=== PATIENT | female | born 1930 | race Caucasian/White ===

== ENCOUNTER 2021-05-16 00:49 | Emergency (ER) | payer MEDICARE, BC ==
[~2021-05-16] VITALS: Ht 165.1 cm; Wt 68.0 kg
--- NOTE | 2021-05-16 00:55 | NUR ---
PT BIB [id number] FROM HOME C/O NAUSEA, A/O X3, NO SOB OR LABORED BREATHING, AFEBRILE. CLEAR SPEECH, COMPLETE SENTENCES. RECORDS MANAGEMENT CLERK AT BEDSIDE. DR. ZUNIGA AT BEDSIDE, MSE IN PROGRESS.
[2021-05-16] MEDS ORDERED: ONDANSETRON 4 MG/2 ML VIAL IV ONE (01:00)
[2021-05-16] MEDS ORDERED: PANTOPRAZOLE SODIUM 40 MG VIAL IV ONE (01:00)
[2021-05-16] MEDS ORDERED: VANCOMYCIN IV 1,000 MG in IV DEXTROSE 5% 250 ML IV ONE (01:15)
[2021-05-16] MEDS ORDERED: VANCOMYCIN IV 200 ML ONE (01:22)
[2021-05-16] MEDS ORDERED: PANTOPRAZOLE SODIUM 40 MG VIAL ONE (01:22)
[2021-05-16] MEDS ORDERED: ONDANSETRON 4 MG/2 ML VIAL ONE (01:22)
--- NOTE | 2021-05-16 01:25 | NUR ---
PT TAKEN DOWN FOR CT.
[2021-05-16 01:29] LABS: CARBON DIOXIDE 26 mmol/L (21-32); CHLORIDE 101 mmol/L (98-107); CREATININE 1.6 mg/dL (0.6-1.3); GLUCOSE 224 mg/dL (74-106); POTASSIUM 3.9 mmol/L (3.5-5.1); UREA NITROGEN, BLOOD 38 mg/dL (7-18)
[2021-05-16 01:31] LABS: HEMATOCRIT 34.2 % (31.2-41.9); MEAN CORPUSCULAR HEMOGLOBIN 35.8 uug (24.7-32.8); MEAN CORPUSCULAR VOLUME 102.8 fL (75.5-95.3); PLATELET COUNT (AUTO) 227 K/uL (179-408)
[2021-05-16 01:35] LABS: ALANINE AMINOTRANSFERASE 18 U/L (14-59); ALKALINE PHOSPHATASE 139 U/L (50-136); ASPARTATE AMINOTRANSFERASE 21 U/L (15-37); BILIRUBIN,DIRECT 0.3 mg/dL (0.0-0.2); BILIRUBIN,TOTAL 1.4 mg/dL (0.2-1.0); LIPASE 125 U/L (73-393)
--- NOTE | 2021-05-16 01:40 | NUR ---
PT RETURNED FROM CT.
[2021-05-16] MEDS ORDERED: D-MA1POW MC (02:11)
[2021-05-16] MEDS ORDERED: TORS20TA3 PO (02:11)
[2021-05-16] MEDS ORDERED: BUSP5TAB3 PO (02:11)
[2021-05-16] MEDS ORDERED: SITA50TA GT (02:11)
[2021-05-16] MEDS ORDERED: vitamin d3 PO (02:11)
[2021-05-16] MEDS ORDERED: ASPI81TA31 PO (02:11)
[2021-05-16] MEDS ORDERED: ATOR40TA PO (02:11)
[2021-05-16] MEDS ORDERED: DILT180C90 PO (02:11)
[2021-05-16] MEDS ORDERED: LOSA50TA39 PO (02:11)
--- NOTE | 2021-05-16 02:44 | NUR ---
US (SILVANA) AT BEDSIDE.
[2021-05-16] MEDS ORDERED: IV NORMAL SALINE 500 ML BAG IV ONE (03:00)
[2021-05-16] MEDS ORDERED: SULF1TAB48 PO (03:05)
[2021-05-16] MEDS ORDERED: CEPH500T PO (03:05)
--- NOTE | 2021-05-16 03:41 | NUR ---
Patient does not wish to proceed with medical care recommended by Corona Bolivar. Pt A/O x4, no changes in LOC. Denies any pain/discomfort upon discharge. Steady gait. Patient given information related to possible complications, up to and including , which could occur as a result of leaving the hospital at this time. Patient verbalizes understanding of risks involved due to leaving against medical advice. Patient has signed AMA form. Accompanied by career development associate.
[2021-05-16 03:43] VITALS: BP 135/55
== END 2021-05-16 03:32 | disposition left against medical advice (07) ==
LOC: ER 00:52
DX: L03.116 Cellulitis of left lower limb (principal); L03.115 Cellulitis of right lower limb; R94.31 Abnormal electrocardiogram [ECG] [EKG]; K42.9 Umbilical hernia without obstruction or gangrene; R60.0 Localized edema; E11.65 Type 2 diabetes mellitus with hyperglycemia; Z79.84 Long term (current) use of oral hypoglycemic drugs; Z79.82 Long term (current) use of aspirin; Z79.899 Other long term (current) drug therapy; Z20.822 Contact with and (suspected) exposure to COVID-19; I45.10 Unspecified right bundle-branch block; A49.8 Other bacterial infections of unspecified site; Z16.11 Resistance to penicillins; Z16.29 Resistance to other single specified antibiotic; I50.9 Heart failure, unspecified; Z53.29 Procedure and treatment not carried out because of patient's decision for other reasons
CPT/HCPCS: 74176; 80048; 80076; 83605; 83690; 83880; 84484; 85025; 85730; 87040 ×2; 87077; 87186; 87426; 93005; 93970; 96361; 96365; 96375; 99285; C9113; J2405; J3370; 36415; 70030-TC; A4663; J7040